=== PATIENT | female | born 1950 | race Caucasian/White ===

== ENCOUNTER 2021-07-15 18:33 | Inpatient (IN) | payer MEDICARE, MEDICAID ==
[~2021-07-15] VITALS: Ht 152.4 cm; Wt 54.5 kg
[2021-07-15] MEDS ORDERED: ATORVASTATIN CA10 MG PO (19:58)
[2021-07-15] MEDS ORDERED: VITAMIN D31250 MCG PO (20:01)
[2021-07-15] MEDS ORDERED: CO Q-10100 MG PO (20:01)
[2021-07-15] MEDS ORDERED: BUSPIRONE HCL5 MG PO (20:02)
[2021-07-15 20:37] LABS: HEMOGLOBIN 12.6 gm/dl (12.3-15.3); RED BLOOD COUNT 4.11 M/UL (4.00-5.10); WHITE BLOOD COUNT 10.3 K/UL (4.5-11.0)
[2021-07-16 03:28] LABS: HEMOGLOBIN 12.1 gm/dl (12.3-15.3); RED BLOOD COUNT 3.97 M/UL (4.00-5.10); WHITE BLOOD COUNT 9.5 K/UL (4.5-11.0)
[2021-07-16 04:30] LABS: BUN/CREATININE RATIO 13 (0-10)
[2021-07-16 19:02] LABS: HEMOGLOBIN 11.7 gm/dl (12.3-15.3); RED BLOOD COUNT 3.8 M/UL (4.00-5.10); WHITE BLOOD COUNT 10.5 K/UL (4.5-11.0)
[2021-07-17 03:04] LABS: HEMOGLOBIN 11.2 gm/dl (12.3-15.3); RED BLOOD COUNT 3.71 M/UL (4.00-5.10); WHITE BLOOD COUNT 9.8 K/UL (4.5-11.0)
[2021-07-17] MEDS ORDERED: ISOSORBIDE MONO30 MG PO (14:04)
[2021-07-17] MEDS ORDERED: NITROGLYCERIN0.4 MG SL (14:04)
[2021-07-17] MEDS ORDERED: LIPITOR80 MG PO (14:04)
[2021-07-17] MEDS ORDERED: NICOTINE PATCH1 EAC2 TOP (14:04)
[2021-07-17] MEDS ORDERED: ASPIRIN EC81 MG PO (14:04)
[2021-07-17] MEDS ORDERED: BRILINTA 90 MG90 MG PO (14:04)
[2021-07-17] MEDS ORDERED: LOPRESSOR 25 MG25 MG PO (14:04)
== END 2021-07-17 15:43 | disposition home or self-care (01) | DRG 247 ==
LOC: PROG CARE 18:33
PROVIDERS: Internal Medicine Interventional Cardiology; ADMIT Internal Medicine
PROC: B24BZZZ Ultrasonography of Heart with Aorta (ICD-10-PCS; principal; 2021-07-16)
PROC: 027034Z Dilation of Coronary Artery, One Artery with Drug-eluting Intraluminal Device, Percutaneous Approach (ICD-10-PCS; 2021-07-16)
PROC: 4A023N7 Measurement of Cardiac Sampling and Pressure, Left Heart, Percutaneous Approach (ICD-10-PCS; 2021-07-16)
PROC: B2111ZZ Fluoroscopy of Multiple Coronary Arteries using Low Osmolar Contrast (ICD-10-PCS; 2021-07-16)
DX: I21.4 Non-ST elevation (NSTEMI) myocardial infarction (principal); Z68.41 Body mass index [BMI] 40.0-44.9, adult; I97.630 Postprocedural hematoma of a circulatory system organ or structure following a cardiac catheterization; I25.110 Atherosclerotic heart disease of native coronary artery with unstable angina pectoris; E78.5 Hyperlipidemia, unspecified; F41.9 Anxiety disorder, unspecified; I10 Essential (primary) hypertension; M19.91 Primary osteoarthritis, unspecified site; G51.0 Bell's palsy; Z79.899 Other long term (current) drug therapy; J44.9 Chronic obstructive pulmonary disease, unspecified; F17.210 Nicotine dependence, cigarettes, uncomplicated; Z20.822 Contact with and (suspected) exposure to COVID-19; E66.9 Obesity, unspecified; Z98.51 Tubal ligation status; Z79.82 Long term (current) use of aspirin; Z98.890 Other specified postprocedural states; Z88.8 Allergy status to other drugs, medicaments and biological substances; Z71.6 Tobacco abuse counseling; Z99.81 Dependence on supplemental oxygen; Z82.49 Family history of ischemic heart disease and other diseases of the circulatory system; Z83.3 Family history of diabetes mellitus; Z80.42 Family history of malignant neoplasm of prostate; Z88.6 Allergy status to analgesic agent
CPT/HCPCS: ECHO; 36415; 80048; 80053; 80061; 82550; 82553; 83735; 83874; 83880; 84100; 84484; 85025; 85027; 85347; 85730; 93005; 93306; 99152; 99153; C1725; C1769; C1874; C9600; J0461; J1644; J2250; J2370; J3010; J3246; J7030; J7040; Q9967

== ENCOUNTER 2021-08-05 19:41 | Emergency (ER) | payer MEDICARE ==
[~2021-08-05 19:41] MED LIST: ASPIRIN EC81 MG PO; ATORVASTATIN CA10 MG PO; BRILINTA 90 MG90 MG PO; BUSPIRONE HCL5 MG PO; CO Q-10100 MG PO; ISOSORBIDE MONO30 MG PO; LIPITOR80 MG PO; LOPRESSOR 25 MG25 MG PO; NICOTINE PATCH1 EAC2 TOP; NITROGLYCERIN0.4 MG SL; VITAMIN D31250 MCG PO
[2021-08-05 20:12] LABS: HEMOGLOBIN 11.4 gm/dl (12.3-15.3); RED BLOOD COUNT 3.67 M/UL (4.00-5.10)
== END 2021-08-05 22:48 | disposition home or self-care (01) ==
LOC: ER1 19:41
PROVIDERS: Family Medicine
DX: I95.9 Hypotension, unspecified (principal); I25.2 Old myocardial infarction; E78.5 Hyperlipidemia, unspecified; J44.9 Chronic obstructive pulmonary disease, unspecified; I11.9 Hypertensive heart disease without heart failure; Z87.891 Personal history of nicotine dependence; Z88.5 Allergy status to narcotic agent
CPT/HCPCS: 71045; 80053; 82550; 82553; 83874; 84484; 85025; 93005; 99285

== ENCOUNTER → 2021-09-26 | Outpatient (CLI) | payer MEDICARE | LOC: HEART 5 14:51 | DX: I10 Essential (primary) hypertension (principal); R42 Dizziness and giddiness ==